=== PATIENT | male | born 1995 | race Caucasian/White ===

== ENCOUNTER 2018-10-24 03:18 | Emergency (ER) | payer OTHER, BC ==
[2018-10-24] MEDS: ACETAMINOPHEN 500 MG TAB PO (04:35)
[2018-10-24] MEDS: DIPHTH/TET/ACEL PERTUSS (ADULT) 0.5 ML VIAL IM* (04:35)
[2018-10-24] MEDS: LIDOCAINE 1% (MDV) 20 ML INJ SC (04:52)
== END 2018-10-24 05:57 | disposition home or self-care (01) ==
LOC: FTE 03:18
DX: S61.411A Laceration without foreign body of right hand, initial encounter (principal); W26.8XXA Contact with other sharp object(s), not elsewhere classified, initial encounter; Y92.9 Unspecified place or not applicable; Z23 Encounter for immunization
CPT/HCPCS: 12002; 90471; 90715; 99283-25